=== PATIENT | male | born 1955 | race Caucasian/White ===

== ENCOUNTER → 2018-04-24 14:19 | Outpatient (CLI) | payer OTHER, SELFPAY ==
--- NOTE | 2018-04-24 14:59 | RAD_ITS ---
STUDY: X-RAY - CERVICAL SPINE REASON FOR EXAM: Male, 62 years old. Left cervical radiculopathy TECHNIQUE: 5 view(s) of the cervical spine were obtained. COMPARISON: None FINDINGS: Normal anterior atlantoaxial articulation. Normal odontoid process. Normal cervical lordosis. There is multi-level endplate spondylosis. There is multi-level degenerative disc disease with multilevel disc space narrowing. There is multi-level osseous foraminal stenosis. Skull base hardware. The soft tissue structures are unremarkable. RAD/Cerv Spine 4 or 5 Views IMPRESSION: Degenerative changes without acute findings Electronically Signed: Jonathan Krueger DO at 15:13 EDT Tel , Service support ,
== END ==
PROVIDERS: Family Provider Family Medicine; PCP Family Medicine; Visit Provider Family Medicine
DX: M54.12 Radiculopathy, cervical region (principal)
CPT/HCPCS: 72050

== ENCOUNTER 2018-05-30 08:00 | Outpatient (RCR) | payer OTHER, SELFPAY ==
--- NOTE | 2018-05-07 10:01 | HP.PTEVAL_ITS ---
Patient's Visit Information WILL CLINTON is a 62 year old M referred to Physical Therapy by Vivek Arevalo DO with a diagnosis of neck pain. Date of Evaluation: 05/07/18 Physical Therapist: Michael Aguero PT, - Visit Plan Frequency: 2-3x /Week Duration: 3 Weeks Plan: postural edu, c/s retraction, DTR, scap stab ex's, UBE, US, and HEP - Subjective Subjective: Pt reports intermittent neck pain for several years. Pt reports he had PT for his neck pain 8 years ago which helped. Pt reports he has stiffness and pain which can keep him from sleeping at night. Pt reports he has tingling in his L shoulder which extends from the cervical region. Pt reports he has had xrays which revealed OA in the cervical spine region throughout. Pt reports he will on occasion have tingling all the way down his arm to the 4th and 5th digits of the L UE. Pt reports pulling weeds and working on his computer increases his pain. Pt reports exercising helps to decrease his pain. 3/10 pain at rest, 7/10 pain at worst - Pain neck pain Pain Intensity (Out of 10): 3 Pain Intensity Range: 7 - Objective Neuro: B UE sensation is WNL to light touch. B bicepital reflex= 2/3. ROM: minor limitation with extension, L SB is moderately limited, and minimally limited with retraction. All other motions are WNL. MMT: B UE's 5/5 throughout. Repeated movements: P reports decreased pain with cervical spine retraction activity. special tests: neg compression and distraction tests. - Goals Goal 1:: Decrease c/s pain x 50% to aid with sleep Goal Time Frame: 4-6 Weeks Goal 2:: Decrease frequency and intensity of L UE radiculopathy x 50% to aid with IADL's Goal Time Frame: 4-6 Weeks Goal 3:: Pt will be able to demonstrate proper posture both verbally and physically to aid with preventing future episodes of c/s pain. Goal Time Frame: 4-6 Weeks Goal 4:: I with HEP Goal Time Frame: 4-6 Weeks - Rehabilitation Potential Physical Therapy Diagnosis: Pt has neck pain, limited c/s ROM, and L UE radiculopathy secondary to c/s disc derrangement Rehabilitation Potential: Good - Anticipated Interventions Patient/Client Instruction: Educate patient on: Condition, Plan of Care For the Purpose of:: To improve self management Therapeutic Exercise to Include: Strength training, Endurance training, Body mechanics, Postural training, Flexibilty training, Scapular Strength/ Stabilization For the Purpose of:: To decrease pain, To increase ROM, To improve muscle performance and motor function Ultrasound (thermal/non thermal): Yes For the Purpose of:: To decrease pain Thank you for the opportunity to evaluate your patient. For Medicare and Medicare HMO plans, please review the plan of care and approve it. It will need to be FAXED BACK to us at [phone] for Medicare purposes. Please let me know if there are questions or concerns regarding this plan of care. Physician Signature: Date:
--- NOTE | 2018-05-30 08:42 | HP.PTDCSUM ---
HP - PT D/C Summary It has been my pleasure to treat WILL CLINTON under orders from Vivek Arevalo DO, for the diagnosis of neck pain for a total of 9 visit(s). Discharge Date: Please see the following information for a summary of their discharge status. - Subjective Subjective: Pt reports he feels much better overall - Pain neck pain Pain Intensity (Out of 10): 1 - Overall Improvement % Improvement: 90 - Objective Objective/Function: Neck pain now 1/10 and presents no sleep difficulty. Pt reports minimal L UE radiculopathy that is intermittent in nature. Pt is I with HEP. Rx goals achieved - Goals Goal 1:: Decrease c/s pain x 50% to aid with sleep Goal Progress: Goal Met Goal 2:: Decrease frequency and intensity of L UE radiculopathy x 50% to aid with IADL's Goal Progress: Goal Met Goal 3:: Pt will be able to demonstrate proper posture both verbally and physically to aid with preventing future episodes of c/s pain. Goal Progress: Goal Met Goal 4:: I with HEP Goal Progress: Goal Met - Plan Plan: Discharge - D/C Information If there are questions or concerns regarding this patient's physical therapy, please feel free to call me at [phone]. Thank you for the referral of this patient. Sincerely, Michael Aguero, PT,
== END 2018-05-30 12:57 | disposition home or self-care (01) ==
LOC: PT 08:00
PROVIDERS: Family Provider Family Medicine; PCP Family Medicine; Visit Provider Family Medicine
DX: M54.12 Radiculopathy, cervical region (principal); M47.812 Spondylosis without myelopathy or radiculopathy, cervical region
CPT/HCPCS: 97035; 97110; 97161; 97530

== ENCOUNTER → 2019-08-19 12:34 | Outpatient (CLI) | payer OTHER, SELFPAY ==
[2018-10-09 08:35] VITALS: BMI 24.4
--- NOTE | 2019-08-19 12:38 | RAD_ITS ---
STUDY: X-RAY - ABDOMEN/PELVIS REASON FOR EXAM: Male, 64 years old. Several day history of abdominal discomfort. TECHNIQUE: Single AP view of the abdomen / pelvis. COMPARISON: None. FINDINGS: Normal visualized lung bases. There is an unremarkable bowel gas pattern. There is no demonstrated free abdominal air. The visualized liver, spleen and kidneys are grossly normal in size and morphology. There are calcified phleboliths in the pelvis. Normal visualized osseous structures. RAD/Abdomen Single View IMPRESSION: No acute abnormality is seen. Electronically Signed: Cesar Castro, at 13:26 EDT , Service support ,
== END ==
PROVIDERS: Family Provider Family Medicine; PCP Family Medicine; Referring Provider Family Medicine; Visit Provider Family Medicine
DX: R10.9 Unspecified abdominal pain (principal)
CPT/HCPCS: 74018

== ENCOUNTER → 2020-02-14 15:15 | Outpatient (CLI) | payer OTHER, SELFPAY ==
[2018-10-09 08:35] VITALS: BMI 24.4
[2020-02-14 15:56] LABS: CREATININE FINGERSTICK 0.8 mg/dL (0.70-1.30); EGFR FINGERSTICK > 60.0000 mL/min (>60)
--- NOTE | 2020-02-14 16:00 | MRI_ITS ---
STUDY: MRI BRAIN WITH AND WITHOUT CONTRAST REASON FOR EXAM: Male, 64 years old. New episode of syncope. Arachnoid cyst drained following MRI in 2016. TECHNIQUE: Standardized multiplanar fat and water weighted pulse sequences were obtained. 17ml Dotarem via IV was administered for the contrast portion of the examination. COMPARISON: None. FINDINGS: Normal size of the ventricles and extra-axial spaces for the patient''s age. Normal white matter tracts of the supratentorial brain. Normal bilateral basal ganglia. Normal thalami. There is no extra-axial fluid accumulation. Normal flow voids within the major intracranial circulation suggesting patency by spin echo criteria. Normal venous enhancement. There is no enhancing intra-axial or extra-axial abnormality. There is an arachnoid cyst in the posterior fossa on the right side measures approximately 5.9 x 5 x 4.2 cm. There is increased CSF within the sella and flattening of the pituitary gland consistent with an empty sellar syndrome. Normal infundibular stalk, hypothalamus, and optic chiasm. Normal tectal plate and pineal gland. Normal midbrain, maverick and medulla. Normal cerebellum. Normal basal cisterns. Normal bilateral temporal bones. Normal bilateral internal auditory canals. No demonstrated orbital abnormality, within the constraints of a routine brain study. Normal visualized paranasal sinuses. Postsurgical changes are noted in the occipital bone Normal visualized soft tissue structures. Normal visualized upper cervical spine. MRI/Brain W/WO Contrast IMPRESSION: There is an arachnoid cyst in the posterior fossa on the right side measures approximately 5.9 x 5 x 4.2 cm. Electronically Signed: J Carlos Benton, at 7:19 EDT Tel , Service support ,
== END ==
PROVIDERS: PCP Family Medicine; Referring Provider Family Medicine; Visit Provider Family Medicine
DX: R51 Headache (principal); R55 Syncope and collapse; Z82.49 Family history of ischemic heart disease and other diseases of the circulatory system
CPT/HCPCS: 70553; A9575

== ENCOUNTER 2021-06-29 17:30 | Outpatient (RCR) | payer OTHER, SELFPAY ==
[2020-10-12 17:20] VITALS: BMI 24.4
--- NOTE | 2021-06-17 18:57 | HP.PTEVAL ---
Patient's Visit Information WILL CLINTON is a 65 year old M referred to Physical Therapy by Dr. Vivek Arevalo DO with a diagnosis of Menieres Disease.. Date of Evaluation: 06/17/21 Physical Therapist: Jose Holland, EDDIET, OCS, CSCS - Visit Plan Frequency: 2x /Week Duration: 2-4 Weeks Plan: 2-4 visits for teaching HEP of... 1. VOR standing and moving. 2. foam stance ec with progression of DANIEL. 3. functional squatting with head movements and balance challenges. . Kevin chi type balance work. - Subjective Had Mienieres for 4-5 years now. Vertigo at first and that has leveled out and now typical symptoms of hearing difficulty, ringing in ears etc. However lately the swimming in the ears has increased gradually. The swimminess has been there for a long time but feels worsening over the last 6-8 months slightly more intense. It doesnt keep him form activities but he has been careful with certain activity. Wants to stay active and rides bike adn walks and does yard work several times per week. swimminess is described as feeling unblanaced like stadning on one foot or turning too fast. Sleep is not great but normal at this point. Has sleep apnea and hard time wearing CPAP. No falls lately. No spinning to speak of in last 3-4 months. No treatment for Mieneires except low sodium and low caffein diet. Takes diuretic for blood pressure which may help. Low caffeine diet really helps. 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 Only effected if he has a vertigo attack. Flourescent lights and background noise seems worse. Swimminess would be worse at times with fast movement of the head or bending over too quickly. Also with vestibular-visual priroity problems. - Objective Walks I and normal without deficits today, VOR walking is slightly more challenging but no swimmy feeling. Trasnfers are I and safe. Steps reciprocal without rail. Slight swimmy descending. Foam stance ec very challenging and unsteady and give swimmy feeling moderately trasniently. cervical aROM WFL and without pain. UE AROM WFL and without pain. - B hallpike morales test, - roll test. MSQ positions are negative for swimmyness or symptoms except 180 degree turn L slightly quickly and up from L knee slightly and quickly. Oculamotor is unremarkable on this date: no nystagmus with gaze or head shake. - skew eye deviation. - ocular tilt. Slight positive l head thrust. pursuit and saccades normal and asymptomatic. VOR normal horiz and veritcal with slight swimmyness horizontal qucikly. - Balance/Special Test Scores Functional Gait Assessment Score: 29 % Disability: 3.3400 CATSIB Score (Max score 120 seconds): 94 Dizziness Score: 38 - Goals Goal 1:: Pt I in appropriate HEP to minimize future problems with symptoms and balance. Goal Time Frame: 2-4 Weeks Goal 2:: Stand on foam ec 30 seconds easily Goal Time Frame: 4-6 Weeks Goal 3:: Pt feel 50% better in swimmyness symptoms and balance. Goal Time Frame: 2-4 Weeks - Rehabilitation Potential Physical Therapy Diagnosis: Blance swimmyness from Menieres and appropriate to avoid future problems Rehabilitation Potential: Fair - Anticipated Interventions Patient/Client Instruction: Educate patient on: Condition For the Purpose of:: To increase tolerance to activity/condition/position Therapeutic Exercise to Include: Balance training, Neuromotor development For the Purpose of:: To increase tolerance to activity/condition/position Thank you for the opportunity to evaluate your patient. For Medicare and Medicare HMO plans, please review the plan of care and approve it. It will need to be FAXED BACK to us at [phone] for Medicare purposes. For Medicare only, by signing this I certify the plan of care. Please let me know if there are questions or concerns regarding this plan of care. Physician Signature: Date:
--- NOTE | 2021-08-20 06:54 | HP.PT.NRP ---
WILL Mitchell MUKESHBETHANY was seen in my office for initial evaluation on 06/17/21. The following Plan of Care was established for this patient: Initial Frequency: 2x /Week Initial Duration: 2-4 Weeks Patient/Client Instruction: Educate patient on: Condition For the Purpose of:: To increase tolerance to activity/condition/position Therapeutic Exercise to Include: Balance training, Neuromotor development For the Purpose of:: To increase tolerance to activity/condition/position This patient was last seen in our office 06/29/21. Pertinent comments regarding their Physical therapy will appear below: Pt seen 3 visits for HEp instruct and progression. He was ready to do his exeercises on his own at last session and was to call by end of July if he had concerns or need to return. he did not and I will disocntinue him from my care. At this point I will be discontinuing this patient from physical therapy. I would be happy to see this patient again in the future if found appropriate by the physician. Thank you! Jose Holland, DPT, OCS, CSCS Balance/Gait/Functional tests - Balance/Special Test Scores Functional Gait Assessment Score: 29 % Disability: 3.3400 CATSIB Score (Max score 120 seconds): 94 Dizziness Score: 38
== END 2021-06-29 19:00 | disposition home or self-care (01) ==
LOC: PT 17:30
PROVIDERS: PCP Family Medicine; Referring Provider Family Medicine; Visit Provider Family Medicine
DX: H81.02 Meniere's disease, left ear (principal)
CPT/HCPCS: 97110; 97162

== ENCOUNTER 2022-09-08 18:30 | Outpatient (RCR) | payer OTHER, SELFPAY ==
--- NOTE | 2022-08-02 17:17 | HP.PTEVAL ---
Patient's Visit Information WILL CLINTON is a 67 year old M referred to Physical Therapy by Dr. Vivek Arevalo DO with a diagnosis of R trochanteric bursitis, LBP. Date of Evaluation: 08/02/22 Physical Therapist: Jose Holland, EDDIET, OCS, CSCS - Visit Plan Frequency: 2x /Week Duration: 2-4 Weeks Plan: 2x/week for 2-4 weeks...start two weeks and please... ensure ITB stretch going OK. Teach for HEP: band pull downs, rows, pot stirs and progressions. core brdiges, inchworms, crunches, quadruped opp UE/LE and progressions. DB squats, RDL, lunges and heel raises and progressions. Give pics when ready,. Has db, bands and barbells at home and bowflex and that is where he wants to exercise. - Subjective Pain has been there about a month in R hip and posterior gradually even before a month ago. had x ray one year ago and minor arthritis. Worse a month ago maybe due to increasing walkign with dog and trying some running and may have overdone it. pain then in hip was 7/10 and casuing limping and pain to walk. Pain is lateral hip and posterior especially worse with stepping up.one mile was too much a month ago. No limping in a while up to 1/10 intermittent if puts weight thorugh it. Sleeping is OK now but was waking him up. 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 Not as stiff anymore. Hobbies include walking dog 2-3 miles per day now and slightly worse after walking. has done hip IR/er stretching, HS and LB. Has equipment at home of bands , dumbells and bowflex adn squat rack and barbell. Airdyne bike. - Pain R hip Pain Intensity (Out of 10): 0 Pain Intensity Range: 0, 1 - Objective R ITb tight and quad tight, psoas tight. wALKS NORMAL WITH SLIGHT r AVOIDANCE HIP EXTENSION BUT i. tRASNFERS NORMAL AND i. Steps reciprocal and I without rail but could not have done that a month ago. Hip PROM and AROM symmetrical adn WFL except R hip ext rotation whcih is 65 and L is 75 and IR which is full but painful on R. Tender to palpation R ITB and trochanteric bursa area. reflexes 2/3 patella and achilles. Sensation LE WNL to gross light touch. LB AROM WFL and symmetrical and painfree. +DEDRA R and FADDIR R. strength LE 4- hip ext and abd B, others 4+ in LE. No pain. - Balance/Special Test Scores Oswestry Low Back Score: 9 - Goals Goal 1:: I approp HEP for strength posture, core adn hips and LE with bands, db, baarbells at home. Goal Time Frame: 2-4 Weeks Goal 2:: Pain 100% better in R hip and walk without problems Goal Time Frame: 2-4 Weeks Goal 3:: 2 or less on oswestry Goal Time Frame: 2-4 Weeks - Rehabilitation Potential Physical Therapy Diagnosis: Bursitis R hip resolving and appropriate for PT Rehabilitation Potential: Fair - Anticipated Interventions Patient/Client Instruction: Educate patient on: Condition, Plan of Care For the Purpose of:: To decrease pain, To increase ROM, To improve muscle performance and motor function, To increase tolerance to activity/condition/position Therapeutic Exercise to Include: Strength training, Flexibilty training For the Purpose of:: To decrease pain, To increase ROM, To improve muscle performance and motor function, To improve ability of physical actions for home/community/work/leisure Thank you for the opportunity to evaluate your patient. For Medicare and Medicare HMO plans, please review the plan of care and approve it. It will need to be FAXED BACK to us at [phone] for Medicare purposes. For Medicare only, by signing this I certify the plan of care. Please let me know if there are questions or concerns regarding this plan of care. Physician Signature: Date:
--- NOTE | 2022-09-08 18:58 | HP.PTDCSUM ---
It has been my pleasure to treat WILL CLINTON referred by Dr. Vivek Arevalo DO, with the diagnosis of R trochanteric bursitis, LBP for a total of 7 visit(s). Discharge Date: 09/08/22 Please see the following information for a summary of their discharge status. Subjective: L knee really hurting as he may have overdone it with walking and exercise on the weekend. has been that way this week. R hip is doing pretty well as long as he does not overdo it. Time to time pain. usually with overdoing it walking. Muscle spasms continue in back. Sleep is OK but up achy at times at night with L knee since overdoing it Monday. Avoids squats and lunges this week due to L knee stiffness. Other activites are pretty normal. did HEP for first two weeks wit no problem but did more walking this last weekend. R hip Pain Intensity (Out of 10): 0 Left Leg Pain Intensity (Out of 10): 1 Neck Pain Intensity (Out of 10): 0 % Improvement: 95 Objective/Function: L knee has + bounce home and pain posteriorly with end range flexion. No quad lag. R hip ROM and LB ROM WFL and without pain today. Goal 1:: I approp HEP for strength posture, core adn hips and LE with bands, db, baarbells at home. Goal Progress: Goal Met Goal 2:: Pain 100% better in R hip and walk without problems Goal Progress: 95% Goal 3:: 2 or less on oswestry Goal Progress: Progressing Plan: Pt to rest L knee, work on ROm and hold on squats and lunges until back to 100% L knee then resume. Can continue all other ex, contact doctor if l knee pain lingers. D/C PT If there are questions or concerns regarding this patient's physical therapy, please feel free to call me at [phone]. Thank you for the referral of this patient. Sincerely, Jose Holland, DPT, OCS, CSCS Balance/Gait/Functional tests - Balance/Special Test Scores Oswestry Low Back Score: 8 Lower Extremity Functional Score: 68
== END 2022-09-08 19:00 | disposition home or self-care (01) ==
LOC: PT 18:30
PROVIDERS: PCP Family Medicine; Referring Provider Family Medicine; Visit Provider Family Medicine
DX: M70.61 Trochanteric bursitis, right hip (principal); M54.50 Low back pain, unspecified
CPT/HCPCS: 97110; 97162; 97164; 97530

== ENCOUNTER → 2022-10-27 | Outpatient (CLI) | payer OTHER, SELFPAY ==
--- NOTE | 2022-10-27 | IMM_PTH ---
PATIENT: WILL CLINTON LOC: [facility] U#:[id number] AGE/SX: 67/M ROOM: RE10/27/[address]: Dr. George Oneill MD : 1955 BED: DIS: 10/27/2022 SPEC #: [id number] RECD: 11/01/22 13:17 STATUS: CHRISTINA REQ #: [id number] MATIAS: 10/27/22 00:[address]: George Oneill DEPT: IMMUNOHISTOCHEMISTRY RECD BY: Kirsten Means ENTERED: 11/01/22 13:18 SP TYPE: IMMUNO OTHR DR: Dr. Vivek Arevalo DO Tissues: A - PROSTATE RIGHT D - PROSTATE LEFT F - PROSTATE LEFT Procedures: 34BE12 (add) P40 (add) 34BE12 (initial) PHYSICIAN & INSTITUTION [place] [id number] SPECIMEN INFORMATION: Tissue Source: A - Right apex, D - Left apex, F - Left base Clinical Info: Elevated PSA Specimen Number: [id number] A, D & F CPT code: 31112, 22016 x5 METHODOLOGY: Deparaffinized sections of prefer/formalin-fixed tissue or PAP/DQ stained slides are incubated with monoclonal/polyclonal antibodies/oligonucleotide probes. Localization is made via biotin free immunoperoxidase method. Appropriate controls are performed and reacted as expected. Results on target cell population are indicated in the following table: RESULTS: ANTIBODY / CLONE RESULT Block A P40 (BC28) negative 34BE12 (34BE12) negative Block D P40 (BC28) negative 34BE12 (34BE12) negative Block F P40 (BC28) negative 34BE12 (34BE12) negative These tests were developed and their performance characteristics determined by [facility]. They may not have been cleared or approved by the U.[place]. Food and Drug Administration. The FDA has determined that such clearance or approval is not necessary. The above immunohistochemical/dualISH markers are ordered and reviewed by the Pathologist. INTERPRETATION: A. Right prostate, apex, core biopsy: Atypical small acinar proliferation. D. Left prostate, apex, core biopsy: A minute focus of adenocarcinoma. F. Left prostate, base, core biopsy: Adenocarcinoma. SJ:taya 11/02/2022
--- NOTE | 2022-10-27 | PROSBIL_PTH ---
PATIENT: WILL CLINTON LOC: [facility] U#:[id number] AGE/SX: 67/M ROOM: RE10/27/[address]: Dr. George Oneill MD : 1955 BED: DIS: 10/27/2022 SPEC #: [id number] RECD: 10/28/22 14:03 STATUS: CHRISTINA RERadha #: [id number] MATIAS: 10/27/22 00:[address]: George Oneill DEPT: SURGICAL PATHOLOGY RECD BY: Kev Wakefield ENTERED: 10/28/22 14:03 SP TYPE: PROST BX SUZAN DR: Dr. Vivek Arevalo DO Tissues: A - PROSTATE RIGHT B - PROSTATE RIGHT C - PROSTATE RIGHT D - PROSTATE LEFT E - PROSTATE LEFT F - PROSTATE LEFT Procedures: PROSTATE BX HEADER OPERATION: Prostate biopsy PRE-OP DIAGNOSIS: Elevated PSA TISSUE SUBMITTED: A - Right apex, B - Right mid, C - Right base, D - Left apex, E - Left mid, F - Left base MICROSCOPIC DIAGNOSIS A. Right prostate, apex, core biopsy: Focal atypical small acinar proliferation (JUANA). Focal high-grade prostatic intraepithelial neoplasia (HGPIN). See comment. B. Right prostate, mid, core biopsy: Prostatic adenocarcinoma. Asha grade: 3+3=6 Number of cores involved: 2/2 Proportion of tissue involved: ~25-30% Perineural invasion: Present, focal. Greatest tumor length: 0.4 cm Focal high-grade prostatic intraepithelial neoplasia (HGPIN). C. Right prostate, base, core biopsy: Prostatic adenocarcinoma. Asha grade: 3+4=7 Number of cores involved: 2/2 Proportion of tissue involved: ~75% Perineural invasion: Present, focal. Greatest tumor length: 0.7 cm Focal high-grade prostatic intraepithelial neoplasia (HGPIN). Focal acute inflammation. D. Left prostate, apex, core biopsy: A minute focus of prostatic adenocarcinoma. Asha grade: 3+3=6 Number of cores involved: 1/2 Proportion of tissue involved: <5% Perineural invasion: Present, focal. Greatest tumor length: 0.1 cm Focal high-grade prostatic intraepithelial neoplasia (HGPIN). See comment. E. Left prostate, mid, core biopsy: Focal high-grade prostatic intraepithelial neoplasia (HGPIN). F. Left prostate, base, core biopsy: Prostatic adenocarcinoma. [place] grade: 3+3=6 Number of cores involved: 2/2 Proportion of tissue involved: <5% Perineural invasion: Not identified. Greatest tumor length: <0.4 cm, discontinuous Focal high-grade prostatic intraepithelial neoplasia (HGPIN). See comment. SJ:taya 11/01/2022 COMMENT A, D & F - Immunohistochemistry ([id number]) supports the above diagnosis. MICROSCOPIC DESCRIPTION Slides are reviewed. GROSS DESCRIPTION A - Received is one container designated prostate, right apex. The specimen consists of one elongated fragment of light hassan-white soft tissue measuring 1 cm in length and 0.1 cm in diameter. The specimen is totally submitted in one cassette. B - Received is one container designated prostate, right mid. The specimen consists of two elongated fragments of light hassan-white soft tissue each measuring 1.5 cm in length and 0.1 cm in diameter. The specimen is totally submitted in one cassette. C - Received is one container designated prostate, right base. The specimen consists of two elongated fragments of light hassan-white soft tissue measuring 1.2 and 1.5 cm in length and 0.1 cm in diameter. The specimen is totally submitted in one cassette. D - Received is one container designated prostate, left apex. The specimen consists of one elongated fragment of light hassan-white soft tissue measuring 1.5 cm in length and 0.1 cm in diameter. The specimen is totally submitted in one cassette. E - Received is one container designated prostate, left mid. The specimen consists of two elongated fragments of light hassan-white soft tissue measuring 1 and 1.2 cm in length and 0.1 cm in diameter. The specimen is totally submitted in one cassette. F - Received is one container designated prostate, left base. The specimen consists of two elongated fragments of light hassan-white soft tissue measuring 1 and 1.2 cm in length and 0.1 cm in diameter. The specimen is totally submitted in one cassette. / SJ:rg 10/28/2022 TC:0 [facility]: [id number] x6 ADDENDUM ADDENDUM ADDENDUM ADDENDUM ADDENDUM ADDENDUM ADDENDUM ADDENDUM ADDENDUM ADDENDUM ADDENDUM ADDENDUM ADDENDUM ADDENDUM ADDENDUM ADDENDUM ADDENDUM ADDENDUM ADDENDUM ADDENDUM ADDENDUM ADDENDUM ADDENDUM ADDENDUM ADDENDUM ADDENDUM ADDENDUM ADDENDUM 12/26/2022 09:59 ADDENDUM 12/26/2022 09:59 ADDENDUM 12/26/2022 09:59 ADDENDUM 12/26/2022 09:59 ADDENDUM 12/26/2022 09:59 This addendum is added to incorporate an outside pathology consultation report. The case was examined at [facility] (#[id number]) and the following diagnosis was rendered. A. Right prostate, apex, core biopsy: Rare atypical glands. High-grade prostatic intraepithelial neoplasia. B. Right prostate, mid, core biopsy: Prostatic adenocarcinoma, Asha score 3+4=7, involving 2 of 2 cores and 30% of the tissue. [place] pattern 4 is 5% of the tumor. Perineural invasion. C. Right prostate, base, core biopsy: Prostatic adenocarcinoma, Asha score 3+5=8, involving 2 of 2 cores and 70% of the tissue. Perineural invasion. D. Left prostate, apex, core biopsy: Prostatic adenocarcinoma, Asha score 3+3=6, involving 1 of 1 core and 3% of the tissue. E. Left prostate, mid, core biopsy: Focal high-grade prostatic intraepithelial neoplasia. F. Left prostate, base, core biopsy: Prostatic adenocarcinoma, Asha score 3+3=6, involving 2 of 2 cores and 5% of the tissue. Please see complete above mentioned consultation report in EMR
== END | disposition home or self-care (01) ==
LOC: LABSPEC 15:07
PROVIDERS: PCP Family Medicine; Referring Provider Urology; Visit Provider Urology
DX: C61 Malignant neoplasm of prostate (principal); N42.32 Atypical small acinar proliferation of prostate
CPT/HCPCS: 88305; 88341; 88342; G0416

== ENCOUNTER → 2022-11-25 | Outpatient (CLI) | payer OTHER, SELFPAY ==
--- NOTE | 2022-11-25 09:25 | NM_ITS ---
CLINICAL: 67-year-old male with history of primary prostate carcinoma. WHOLE BODY 99m Tc MDP RADIONUCLIDE BONE SCINTIGRAPHY COMPARISON: None available FINDINGS: Following the intravenous administration of 25.7 mCi of 99m Tc MDP, whole body bone images reveal: 1. Increased radiopharmaceutical concentration is defined in the acromioclavicular and sternoclavicular compartments of both shoulders, the patellofemoral compartment of the right and medial and lateral femoral and medial tibial compartment of the left knee, the fifth lumbar vertebra posteriorly on the left, bilateral elbows, the right wrist. 2. The remaining skeletal structures are scintigraphically unremarkable with normal-appearing renal images and urinary bladder activity identified. NM/Bone Scan Whole Body IMPRESSION: 1. The increase in radiopharmaceutical defined in the bilateral shoulders, the right-left knees, the fifth lumbar vertebra, the elbows bilaterally, the right wrist is commensurate with degenerative arthrosis. 2. There is no definitive scintigraphic evidence of diffuse skeletal metastatic disease on the current examination. Electronically Signed: Adams Garcia, at 10:03 EST ,
== END | disposition home or self-care (01) ==
LOC: NM 09:23
PROVIDERS: PCP Family Medicine; Visit Provider Urology
DX: C61 Malignant neoplasm of prostate (principal)
CPT/HCPCS: 78306; A9503

== ENCOUNTER → 2022-12-15 | Outpatient (CLI) | payer OTHER, MEDICARE, SELFPAY ==
--- NOTE | 2022-12-15 15:28 | MRI_ITS ---
STUDY: MR PELVIS WITH T WITHOUT CONTRAST REASON FOR EXAM: Male, 67 years old. Elevated PSA. TECHNIQUE: Standardized fat and water weighted pulse sequences were obtained in all 3 orthogonal planes, pre-and post contrast administration. IV 15cc clariscan was administered for the contrast portion of the examination. COMPARISON: None. FINDINGS: The prostate measures 3.1 x 4.5 x 2.8 cm with a volume of 19.7 mL. There is normal signal in the peripheral zone on diffusion weighted imaging with a vague area of low signal in the right lateral prostate and ADC mapping. This correlates with a vague area of hypodensity in the white matter on T2-weighted imaging is seen on image 14 of series 5. This measures approximately 0.6 cm in diameter this is compatible with a PI-RADS category 4 lesion.. No contrast enhancement. The transitional zone is diffusely heterogenous on T2-weighted imaging. This appears uniformly low signal on ADC mapping and high signal on diffusion-weighted imaging compatible with a PI-RADS category 1. Mild wall thickening and trabeculation of the urinary bladder. There is no filling defects. Normal visualized small intestine. Normal visualized colon. There is no pelvic fluid. There is no pelvic mass lesion or lymphadenopathy. Normal visualized pelvic arteries. Normal osseous structures. Normal abdominal wall. MRI/Pelvis W/WO Contrast IMPRESSION: 1. Focal lesion in the right upper outer peripheral zone of the prostate, PI-RADS Category 4. High clinical suspicion of malignancy. 2. PI-RADS category 1 of the transitional zone. Very low incidence of malignancy. Electronically Signed: Néstor Cazares DO at 19:01 EST ,
[2022-12-15 16:11] LABS: CREATININE FINGERSTICK < 0.9 mg/dL (0.70-1.30); EGFR FINGERSTICK > 60.0000 mL/min (>60)
== END | disposition home or self-care (01) ==
PROVIDERS: PCP Family Medicine; Referring Provider Urology; Visit Provider Urology
DX: C61 Malignant neoplasm of prostate (principal)
CPT/HCPCS: 72197; A9575

== ENCOUNTER → 2023-02-02 | Outpatient (CLI) | payer OTHER, SELFPAY | END | disposition home or self-care (01) | PROVIDERS: PCP Family Medicine | DX: R30.0 Dysuria (principal) | CPT/HCPCS: 87086; 87088 ==

== ENCOUNTER 2023-09-12 18:30 | Outpatient (RCR) | payer OTHER, SELFPAY ==
--- NOTE | 2023-08-14 08:53 | HP.PTEVAL ---
Patient's Visit Information Visit Information Visit Information: WILL CLINTON is a 68 year old M referred to Physical Therapy by Dr. Vivek Arevalo DO with a diagnosis of cervicalgia. Date of Evaluation: 08/14/23 Physical Therapist: Jose Holland, DPT, OCS, CSCS Visit Plan Frequency: 2-3x /Week Duration: 4-6 Weeks Plan: 2-3x/week for 4-6 weeks for 1. MH and STM, DTR to R neck and lev scap 2. PA mobs and manual traction to neck and PROM rotation and extension, flexion. 3. postural and neck strength to HEP with bands , db, bowflex with pics. Subjective Subjective: Dr. Arevalo sent for neck pain and into spine and r wrist and hand pain and weakness. Clicking of mouse gets hard on r side with pain and achy feeling in R wrist. Is R handed. This has been worsening over the years. Now it is hindering his ability to sit and work. H/o CTS R yrs ago that did not help. 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 Worse at end of day. Denies numbness or tingling in arm of any significance. Sleep is interrupted at times as uncomfortable if he wakes up and hard to find right position to get back to sleep. Basic ADLS are getting done but hurt yesterday to make chili. Hobbies: physical activity and walking dogs. running jogging with dogs is worse. Resistance training is restricted with R wrist. Exercises: OH press, deadlift, bench, Has bowflex and bands and db at home. Pain neck and R wrist.: Pain Intensity (Out of 10): 2 Pain Intensity Range: 1 and 9 Comment: stabbing if lifts heavy or moving quickly. Objective Objective: c/s AROM 55 B rotation pain on R with L rot. extension 40 with tightness R Full UE AROM full scap AROM without pain, elbows and wrist move well. reflexes 1/3 bi and tri B Sensation UE WNL to gross light touch. strength shoulders, elbows and wrists 4+/4 without pain except slight wrist extension. cervical retraction is mod limtied, flexion mod limited to 20 with pulling posterior lev scap wchich is tight on R. and tender to touch. SB are 10 and painfree B. repeated motion flexion increases AROM ext and flexion - c/s compression test. Balance/Special Test Scores Oswestry Neck Score: 16 Goals Goal 1:: Cervical ext 60 and rotation 60 without pain or problems Goal Time Frame: 4-6 Weeks Goal 2:: Pain in neck 1-2/10 at worst and 80% better Goal Time Frame: 4-6 Weeks Goal 3:: Sleep without interruption at night x one week Goal Time Frame: 4-6 Weeks Goal 4:: oswestry score5 or better Goal Time Frame: 4-6 Weeks Goal 5:: I HEP to limit future problems. Goal Time Frame: 4-6 Weeks Rehabilitation Potential Physical Therapy Diagnosis: neck degeneration and postural problems causing pain limiting function Rehabilitation Potential: Good Anticipated Interventions Patient/Client Instruction: Educate patient on: Condition and Plan of Care For the Purpose of:: To decrease pain, To increase ROM, To improve nutrient delivery to tissue, To improve muscle performance and motor function and To increase tolerance to activity/condition/position Therapeutic Exercise to Include: Strength training, Postural training, Flexibilty training, Passive ROM and Active ROM For the Purpose of:: To decrease pain, To increase ROM, To improve nutrient delivery to tissue, To improve muscle performance and motor function and To increase tolerance to activity/condition/position Manual Therapy Techniques to Include: Mobilization, Passive ROM and Soft tissue mobilization For the Purpose of:: To decrease pain, To decrease swelling/inflammation, To improve nutrient delivery to tissue, To improve muscle performance and motor function and To increase tolerance to activity/condition/position Thermo therapy (hot pack): Yes For the Purpose of:: To decrease pain, To increase ROM, To improve nutrient delivery to tissue, To improve muscle performance and motor function and To improve ability of physical actions for home/community/work/leisure Text: Thank you for the opportunity to evaluate your patient. For Medicare and Medicare HMO plans, please review the plan of care and approve it. It will need to be FAXED BACK to us at [phone] for Medicare purposes. For Medicare only, by signing this I certify the plan of care. Please let me know if there are questions or concerns regarding this plan of care. Physician Signature: Date:
--- NOTE | 2023-09-12 18:52 | HP.PTDCSUM ---
Discharge Summary D/C summary: It has been my pleasure to treat WILL CLINTON referred by Dr. Vivek Arevalo DO, with the diagnosis of cervicalgia for a total of 7 visit(s). Discharge Date: 09/12/23 Please see the following information for a summary of their discharge status. Subjective Subjective: [id number] stretches has worked well. Much more painfree. and more flexible. No more pain in thoracic are with movement. Still gets some fatigue and katie in mid bakc with sitting too long. Pain intensity can get up to 5/10, no pain at rest, only with certain movments. Sleep is OK. Pain neck and R wrist.: Pain Intensity (Out of 10): 4 Overall Improvement % Improvement: 75 Objective Objective/Function: Good arom of neck today still tight particularly R lev scap but much better flexiona nd extension ROM and full rotation and SB without pain today. UE AROM WFL. Goals Goal 1:: Cervical ext 60 and rotation 60 without pain or problems Goal Progress: Goal Met Goal 2:: Pain in neck 1-2/10 at worst and 80% better Goal Progress: 75% Goal 3:: Sleep without interruption at night x one week Goal Progress: met with pain Goal 4:: oswestry score5 or better Goal Progress: Progressing Goal 5:: I HEP to limit future problems. Goal Progress: Goal Met Plan Plan: d/c to HEP D/C Information d/c sentence: If there are questions or concerns regarding this patient's physical therapy, please feel free to call me at [phone]. Thank you for the referral of this patient. Sincerely, Jose Holland, DPT, OCS, CSCS Balance/Gait/Functional tests Balance/Special Test Scores Oswestry Neck Score: 7 Improvement % Improvement: 75
== END 2023-09-12 19:00 | disposition home or self-care (01) ==
LOC: PT 18:30
PROVIDERS: PCP Family Medicine; Referring Provider Family Medicine; Visit Provider Family Medicine
DX: M77.8 Other enthesopathies, not elsewhere classified (principal); M54.2 Cervicalgia
CPT/HCPCS: 97110; 97140; 97161; 97530

== ENCOUNTER → 2023-11-02 | Outpatient (CLI) | payer OTHER, SELFPAY ==
--- NOTE | 2023-11-02 06:50 | CT_ITS ---
STUDY: CT ABDOMEN AND PELVIS WITH CONTRAST REASON FOR EXAM: Male, 68 years old. MALIGNANT NEOPLASM OF PROSTATE RADIATION DOSAGE (If Supplied By Facility): CTDIvol = ( 12.89 ) mGy, DLP = ( 617.54 ) mGycm TECHNIQUE: Transaxial images were obtained from the dome of the diaphragm to the symphysis pubis without oral contrast. Oral and amp; IV Readi-CAT and amp; 100mL Isovue-300 was administered. Sagittal and coronal images were reconstructed. Individualized dose optimization techniques were used for this CT. COMPARISON: None. FINDINGS: The visualized lung bases are unremarkable. The visualized portions of the heart are within normal limits. Normal liver. Normal gallbladder and extrahepatic biliary system. Normal spleen. Normal pancreas. Normal bilateral adrenal glands. There is a small cyst right kidney measuring 5.9 mm. Is an exophytic cyst left kidney measuring 1.1 cm. There is an exophytic cyst left kidney measuring 1.1 cm and one measuring 9.3 mm. There is a small hiatal hernia. There is a visualized thick walled appearance of the third and fourth appearance of the duodenum. The proximal jejunum demonstrate abnormal wall thickening and distention in a focal lobe image #41 series 2. There is a decompressed appearance of the left of midline small bowel. There is a decompressed contrasted filled appearance of the distal small bowel with contrast entering the colon. There is a decompressed appearance of the sigmoid with a featureless appearance. The appendix is visualized and appears normal. The aorta is partially calcified. Normal inferior vena cava. There is a minimally distended appearance of the distal midline ureter which appears to resolve. There is a decompressed thick-walled appearance of the bladder. The bladder is low lying the prostate is nonvisualized. Normal abdominal wall. There are diffuse degenerative changes of the visualized lumbar spine. At the level of L5-S1 there is disc space narrowing. Mild neural foraminal narrowing or significant central stenosis. There is a mild broad disc bulge L4-L5 with mild neural foramina narrowing mild central stenosis. CT/Abdomen/Pelvis WITH Contrast IMPRESSION: Abnormal focal distention of the small bowel in the left to midline abdomen which may represent a focus of transient peristalsis however follow-up is warranted to exclude the possibility of abnormal wall thickening or potentially atypia. The differential includes possible mild focus of enteritis. Recommend consideration for upper GI small bowel follow-through. At the time of this study there is no contrast within this loop of bowel. Otherwise nonobstructive bowel gas pattern. Featureless decompressed appearance of the sigmoid colon recommend correlation with clinical history of inflammatory bowel disease or potentially radiation. Status post prostatectomy. Wall thickening of the bladder suspicious for cystitis. Benign-appearing small cyst right kidney measuring 5 mm. Small cyst left kidney measuring 9.3 mm and 1.1 cm. Electronically Signed: Ana Rosa Gan MD at 0:00 EST ,
--- OUTSIDE RECORDS SUMMARY | 2023-11-02 06:51 | XMS RPT_ITS | CCD ---
Author Name Unknown Address [address] [place] [address] Organization [facility] Care Team Providers Care Instructor Technical Training Name Role Phone CEZAR KOVACS MD. Unavailable Unavailable CEZAR KOVACS MD. Unavailable Unavailable Nan Arevalo Unavailable Unavailable Nan Arevalo Unavailable Unavailable CEZAR KOVACS MD. Unavailable Unavailable Nan Arevalo Unavailable Unavailable Shonda Gallegos Unavailable Unavailabl e *SELF, REFERRED Unavailable Unavailable Nan Arevalo Unavailable Unavailable CEZAR KOVACS MD. Unavailable Unavailable CEZAR KOVACS MD. Unavailable Unavailable Nan Arevalo Unavailable Unavailable Cezar Kovacs Unavailable Unavailable Irinaeliane HARO, Nan A Primary Care Provider GEORGE PADILLA Referring Unavailable WILL ZHANG Attending Unavailable IRINA, NAN A Primary Care Unavailable JR GAMEZ Attending Unavailable IRINA, NAN A Primary Care Unavailable WILL ZHANG Referring Unavailable JR GAMEZ Attending Unavailable IRINA, NAN A Primary Care Unavailable WILL ZHANG Referring Unavailable IRINA, NAN A Primary Care Unavailable GONAngle, WILL Haji Attending Unavailable IRINA, NAN A Referring Unavailable IRINA, NAN A Primary Care Unavailable GONWILL Barbour Attending Unavailable WILL ZHANG Referring Unavailable GONGWILL Attending Unavailable IRINA, NAN A Referring Unavailable IRINA, NAN A Primary Care Unavailable IRINA, NAN A Primary Care Unavailable GONG, WILL Haji Attending Unavailable IRINA, NAN A Referring Unavailable IRINA, NAN A Primary Care Unavailable GONG, WILL Haji Attending Unavailable IRINA, NAN A Referring Unavailable IRINA, NAN A Primary Care Unavailable GEORGE PADILLA Referring Unavailable WILL ZHANG Attending Unavailable WILL ZHANG Admitting Unavailable IRINA, NAN A Primary Care Unavailable WILL ZHANG Attending Unavailable NAN AREVALO Referring Unavailable NAN AREVALO Primary Care Unavailable Amanda Sellers DO Unavailable Linda Gonzalez Unavailable Ena Cruz LPN Unavailable Unavailable Allergies Allergy Classification Reported Allergen(s) Allergy Type Date of Onset Reaction(s) Facility (4 sources) atomoxetine Drug Allergy 07-11-2012 Dysuria [facility] (5 sources) Codeine Drug Allergy 09-11-2006 Hives [facility] Medications Current Medications Medication Drug Class(es) Dates Sig (Normalized) Sig (Original) acetaminophen 325 mg oral tablet (2 sources) Start: 01-10-2023 take 3 tablets by mouth every eight hours Acetaminophen 325 MG tablet Take 3 tablets by mouth every 8 hours for 7 days. 63 tablet 0 01/10/2023 Active Cholecalciferol (2 sources) Vitamin D take 5000 mg by mouth at bedtime Cholecalciferol (D3 5000 PO) Take 5,000 mg by mouth at bedtime. 0 Active Completed/Discontinued Medications Medication Drug Class(es) Dates Sig (Normalized) Sig (Original) amLODIPine 5 mg oral tablet (1 source) Dihydropyridine Calcium Channel Abdoul Start: 05-24-2023 take 1 tablet by mouth once daily amLODIPine 5 mg oral tablet 1 (one) tablet daily for 90 days Quantity: 90 {Tablet} Refills: 3 Ordered: 24-May-2023 Amanda Sellers DO, DO, Kathleen Start : 24-May-2023 Active sildenafil 100 mg oral tablet (2 sources) Phosphodiesterase 5 Inhibitor Start: 05-24-2023 take 1 tablet by mouth once daily sildenafiL 100 mg oral tablet 1 Tablet daily for 90 days Quantity: 90 {Tablet} Refills: 3 Ordered: 24-May-2023 Amanda Sellers DO, DO, Kathleen Start : 24-May-2023 Active Problems Active Problems Problem Classification Problem Date Documented Da te Episodic/Chronic Abdominal hernia (2 sources) Hiatal hernia; Translations: [Hiatal hernia] 05-24-2023 Episodic Past or Other Problems Problem Classification Problem Date Documented Date Episodic/Chronic Mood disorders (4 sources) Mood disorders Onset: 12-01-2022 12-01-2022 Other nervous system disorders (2 sources) Other acute postprocedural pain; Translations: [Other acute postprocedural pain] Onset: 01-10-2023 Episodic Residual codes; unclassified (2 sources) Other specified health status; Translations: [Other specified health status] Onset: 12-30-2022 Episodic Unclassified (1 source) Results Test Name Value Interpretation Reference Range Facil ity Vital Signs Date Time Vital Sign Value Performing Clinician Facility 05-24-2023 15:43-0400 Body height 179.07 cm Ena Cruz LPN [facility] Work Phone: 05-24-2023 15:43-0400 Body mass index (BMI) [Ratio] 23.76 kg/m2 Ena Cruz LPN [facility] Work Phone: 05-24-2023 15:43-0400 Body surface area Derived from formula 1.95 m2 Ena Cruz LPN [facility] Work Phone: 05-24-2023 15:43-0400 Body temperature 97.1 [degF] Ena Cruz LPN [facility] Work Phone: Encounters Encounter Date Encounter Type Care Provider Facility Start: 05-24-2023 End: 05-24-2023 Initial preventive medicine new patient 65yrs&> Amanda Sellers DO Work Phone: [facility] Start: 05-04-2023 ambulatory WILL ZHANG Facility :[facility] Start: 01-26-2023 ambulatory WILL ZHANG Facility :[facility] Start: 01-18-2023 ambulatory WILL ZHANG Facility :[facility] Start: 01-18-2023 ambulatory WILL ZHANG Facility :[facility] Start: 01-18-2023 End: 01-18-2023 Clinical Support Encounter Will Zhang MD, PhD Work Phone: Division [facility] Procedures Date Procedure Procedure Detail Performing Clinician Start: 01-10-2023 Antibody screen GEORGE DEVRIES Plan of Treatment Date Care Activity Detail Author Start: 07-23-2024 Tetanus vaccination TETANUS [facility] Start: 07-21-2023 Pneumococcal vaccination PNEUMOCOCCAL VACCINE SERIES (2 - PCV) [facility] Start: 05-24-2023 Assay of thyroid stimulating hormone tsh TSH ([id number]) [facility] Work Phone: Start: 05-24-2023 Urnls dip stick/tablet reagent auto microscopy URINALYSIS, W/ MICRO ([id number]) [facility] Work Phone: Start: 05-24-2023 Urine albumin quantitative MICROALBUMIN: CREATININE RATIO (03665) AND ([id number]) [facility]; [facility] Work Phone: Start: 05-24-2023 Comprehensive metabolic panel METABOLIC PANEL, COMPREHENSIVE (07065) [facility] Work Phone: Start: 05-24-2023 Lipid panel LIPID PANEL ([id number]) [facility] Work Phone: Start: 05-24-2023 Blood count complete auto&auto difrntl wbc CBC W/AUTO DIFF WBC ([id number]) [facility] Work Phone: Start: 05-24-2023 Procedure Education Eprescribed prescriptions ([id number]) [facility] Work Phone: Start: 05-24-2023 Provider Instructions for Treatment [facility] Work Phone: Start: 01-26-2023 End: 01-26-2023 Patient encounter procedure 01/26/2023 Office Visit Urology Will Zhang MD, PhD [address] [place] [address] Division of Urological Surgery at [facility] Start: 01-18-2023 End: 01-18-2023 Clinical Support Encounter Division of Nursing at [facility] Start: 01-10-2023 End: 01-10-2023 Evaluation and management of inpatient CCCT PERIOP Payers Date Payer Category Payer Private Health Insurance [id number] Private Health Insurance [employer] [id number] 2011-Present [address] [place] [address] [id number] 1955 Unknown [id number] [id number]. 2.356 1955 Unknown [id number] 2.16.840.1.159897.3.579. 2.356 1955 Unknown [id number] 2.16.840.1.227195.3.579. 2.356 1955 Unknown [id number] 2.16.840.1.650813.3.579. 2.356 1955 Unknown [id number] 2.16.840.1.207791.3.579. 2.594 1955 Unknown [id number] 2.16.840.1.135051.3.579. 2.594 1955 Unknown [id number] 2.16.840.1.714407.3.579. 2.594 1955 Unknown [id number] 2.16.840.1.622591.3.579. 2.594 1955 Unknown [id number] 2.16.840.1.817993.3.579. 2.594 1955 Unknown [id number] 2.16.840.1.726790.3.579. 2.594 1955 Unknown [id number] 2.16.840.1.318635.3.579. 2.594 1955 Unknown [id number] 2.16.840.1.924030.3.579. 2.594 1955 Unknown [id number] 2.16.840.1.556586.3.579. 2.594 1955 Unknown [id number] 2.16.840.1.728817.3.579. 2.594 1955 Unknown [id number] 2.16.840.1.757508.3.579. 2.594 Unknown [id number] 2.16.840.1.118164.3.579. 2.286 Unknown [employer] Insurance Social History Date Type Detail Facility Start: 12-01-2022 Tobacco smoking status NHIS Never smoked tobacco [facility] Start: 12-01-2022 Tobacco use and exposure Smokeless tobacco non-user [facility] Start: 12-01-2022 End: 01-11-2023 Alcohol intake Lifetime non-drinker (finding) [facility] Start: 1955 Sex Assigned At Not on file [facility] Start: 11-21-2022 End: 01-10-2023 Exposure to SARS-CoV-2 (event) Not sure [facility] Alcohol Use Alcohol Use [facility] Work Phone: Goals Date Patient Goal Desired Activity /State Clinical Notes 08-10-2021 to 01-18-2023 Jordan Thapa RN - 01/18/2023 11:00 AM Angela Swenson RN - 01/18/2023 10:00 AM Bridger Gamez MD - 12/26/2022 12:45 PM Mary Lou Gamez MD - 12/26/2022 12:45 PM ESTPatient Instructions Note Date & Type Note Facility 01-18-2023 History of Presen t illness Narrative Will Kenney was seen by Nursing and [facility] on January 18 for Erectile Dysfunction. This is his 1st [facility] Clinic Visit. Patient had RARP per Dr. Zhang on January 10, 2023. ICD-10-CM 1. Erectile dysfunction following radical prostatectomy N52.31 sildenafil citrate (Viagra) 100 MG tablet 2. Malignant neoplasm of prostate C61 Wt Readings from Last 1 Encounters: 01/10/23 74.8 kg (165 lb) Temp Readings from Last 1 Encounters: 01/11/23 98.5 F (36.9 C) (Oral) BP Readings from Last 1 Encounters: 01/18/23 143/83 Pulse Readings from Last 1 Encounters: 01/18/23 80 Pain Symptoms: no Location: Scale (0-10): Pain level acceptable: yes Character: Frequency: Duration: Pre Operative patient reported history: Erectile History: Can maintain and penetrate. Percent of erection: 85 percent hardness. Nocturnal erections: Nocturnal erections sometimes EULALIO Score: Prior comorbid conditions: dVP (Robotic Prostatectomy) Sexually active: yes Erectile dysfunction treatments: None needed Post RARP history: Procedure: Nerve Sparing: Unilateral 1. Patient Education: Patient taught results of left nerve sparing surgery. Erectile rehabilitation taught as below per provider request? Medications: Sildenafil 100 mg 1 tab po daily and on demand Reviewed side effects, administration of medication and provided CareNotes handout to patient on medication. Reviewed Vacuum Erection Device (KALYANI) instructions and provided patient education handout ED Treatment with Manual Vacuum Erection Device Injection therapy: no, reviewed with patient. Time spent face to face with patient education was 45 minutes The patient verbalizes understanding of these issues and agrees with the plan of all above. Plan: 1. Patient will take Sildenafil as instructed per Dr. Zhang and will follow up with office if side affects occur. 2. Patient will let us know if interested in ICI. Patient to return for follow up [facility] clinic on : as needed for ICI documented in this encounter [facility] 01-18-2023 History of Presen t illness Narrative Denies fevers or pain. Having regular bowel movements. Patient educated on process of voiding trial. 200 ml sterile water instilled into bladder via sandoval. Removed 10 ml catheter balloon and sandoval catheter was removed per protocol. Patient voided 160 ml yellow(color) urine. 45ml residual per bladder scan. Patient tolerated well. Educated patient on Kegel Exercises and expected urinary leakage. Provided patient with incontinence pad. All questions answered. documented in this encounter [facility] 12-26-2022 History and physical note History of Present Illness Mr. Kenney is a 67 y.o. male is being evaluated in [facility] due to his medical condition(s) , which increases his risk for perioperative complications. Patient has hx of HYPERTENSION, VIOLET and prostate cancer. Name: Will Kenney Date of Surgery: 01/10 Surgeon: Leatha Pre-Op Diagnosis: Prostate cancer. Planned Procedure: ROBOTIC PROSTATECOMY WITH LYMPH NODE DISSECTION Do you take Aspirin? no If so, why? Do you take anti-coagulations? If so, why? Type of anesthesia planned: General ANESTHESIA/AIRWAY Anesthesia alerts - known VIOLET -on CPAP, Personal history of problems related to anesthesia (ex.Malignant Hyperthermia): no Family History of problems related to anesthesia (ex.Malignant Hyperthermia: no Pacer/AICD: no Glaucoma: no Beta Abdoul: no Diabetic Mellitus: no VIOLET: yes Neck circumference greater than 40 cm? - Yes Neck Circumference (cm): 38 BMI more then 35? - No Body mass index is 23.76 kg/m . Mallampati class - 1 TM Distance - 3 FB Oral Opening - 3 FB Teeth - normal dentition for age Cervical range of motion - within normal limits Neck circumference - Neck Circumference (cm): 38 Allergies and adverse drug reactions Allergies Allergen Reactions Atomoxetine Dysuria Other reaction(s): Intolerance dysuria Codeine Hives Crab (Diagnostic) Diarrhea Crab meat Lisinopril Cough Anesthesia/Airway A/P - Pt denies hx of complication with previous anesthesia and/or airway. CARDIOVASCULAR Cardiovascular A/P - This patient is in a low risk category as calculated using the RCRI/NSQIP with 1 risk factors. RCRI score is 1 points placing him/her at a 6% cardiac risk in the perioperative setting Functional status - : moderate functional status. Pt is able to perform ADL's independently and climb 2-63 flights of stairs and exercise 4-5 times a weeks. 1. HYPERTENSION - pt states he is borderline and has been taken off meds after pt made some changes to his routine. BP Readings from Last 3 Encounters: 12/26/22 142/82 12/01/22 160/90 2. ? Hx of mitral valve prolapse. Pt states he was told 20+ yrs ago but does not remember if he had any cardiac imaging done. PLAN: No further cardiac testing needed. CARDIAC TESTING: EKG (12/26/2022): NSR, HR:65, normal CT interval, no acute abnormality. PULMONARY Social History Tobacco Use Smoking Status Never Smokeless Tobacco Never Does the patient Vape? no Pulmonary A/P - Pt denies any active pulmonary complaints/concerns at this time. SUBSTANCE ABUSE Social History Substance and Sexual Activity Alcohol Use Never Social History Substance and Sexual Activity Drug Use Never Substance Abuse A/P - Pt denies any hx of substance abuse. CLOTTING/BLEEDING History of DVT/PE - no Are you a Jehovah Witness? - no In case of surgeons plan or unforseen emergency, are you okay with receiving blood products? - yes Clotting Bleeding A/P - Pt denies any hx of clotting/bleeding disorder. Recommend standard DVT/PE prophylaxis postoperatively. DIABETES Diabetes A/P - Pt has never been diagnosed with DM. No results found for: HGBA1C ADDITIONAL DIAGNOSES OF CONCERN 1. BPH- stable on tamsulosin. MEDICATIONS Current Outpatient Medications Medication Sig Cholecalciferol (D3 5000 PO) Take 5,000 mg by mouth at bedtime. Tamsulosin HCl 0.4 MG capsule Take 1 capsule by mouth at bedtime. Medication A/P - Instructions for preoperative medications given to the patient in AVS. LABS Orders Placed This Encounter CBC, EDIF, PLATELET CHEM 6 (LYTES, BUN CREA) CBC AND ELECTRONIC DIFF Type and Cross -Preadmission PREPARE TO TRANSFUSE OR RED BLOOD CELLS: [address] ECG, CLINIC PERFORMED Pulse Ox Lab A/P - Labs reviewed and CBC & Chem-6 noted in acceptable range for scheduled surgery. Lab Results Component Value Date WBC 5.41 12/26/2022 HGB 13.5 12/26/2022 HCT 40.3 12/26/2022 PLATELET 212 12/26/2022 MCV 93.3 12/26/2022 Lab Results Component Value Date SODIUM 136 12/26/2022 POTASSIUM 4.0 12/26/2022 CHLORIDE 102 12/26/2022 CO2 29 12/26/2022 BUN 13 12/26/2022 CREATSERUM 0.73 12/26/2022 Does pt meet criteria for liberalized NPO? NO If no, why? ASA 3 ore more. Pt is Medically OPTIMIZED to proceed with scheduled surgery. Jr Gamez MD [facility] [place] [address] [facility] Review of Systems (OSUROS) Review of Systems Constitutional: Negative for appetite change, chills, fatigue and fever. HENT: Negative for congestion, ear pain, hearing loss, nosebleeds, sinus pain, sore throat, tinnitus and trouble swallowing. Eyes: Negative for discharge and itching. Respiratory: Negative for cough, chest tightness and shortness of breath. Cardiovascular: Negative for chest pain, palpitations and leg swelling. Gastrointestinal: Negative for abdominal pain, constipation, diarrhea, nausea and vomiting. Genitourinary: Positive for frequency. Negative for difficulty urinating, dysuria, enuresis, hematuria and urgency. Musculoskeletal: Negative for back pain, myalgias and neck pain. Skin: Negative for color change and rash. Neurological: Negative for dizziness, speech difficulty, numbness and headaches. Psychiatric/Behavioral: Negative for agitation, behavioral problems, decreased concentration and sleep disturbance. The patient is not nervous/anxious. Physical Examination ([facility]) Blood pressure 142/82, pulse 63, temperature 98.8 F (37.1 C), resp. rate 18, height 1.791 m (5' 10.5 ), weight 76.2 kg (168 lb), SpO2 99 %. Physical Exam Vitals reviewed. Constitutional: General: He is not in acute distress. Appearance: Normal appearance. He is normal weight. He is not ill-appearing. HENT: Head: Normocephalic and atraumatic. Right Ear: Tympanic membrane normal. Left Ear: Tympanic membrane normal. Nose: Nose normal. No congestion or rhinorrhea. Mouth/Throat: Mouth: Mucous membranes are moist. Pharynx: Oropharynx is clear. Eyes: General: Right eye: No discharge. Left eye: No discharge. Extraocular Movements: Extraocular movements intact. Cardiovascular: Rate and Rhythm: Normal rate and regular rhythm. Pulses: Normal pulses. Heart sounds: Normal heart sounds. No murmur heard. No friction rub. Pulmonary: Effort: Pulmonary effort is normal. No respiratory distress. Breath sounds: Normal breath sounds. No stridor. No wheezing or rhonchi. Abdominal: General: Abdomen is flat. Bowel sounds are normal. There is no distension. Palpations: Abdomen is soft. There is no mass. Tenderness: There is no abdominal tenderness. Musculoskeletal: General: No swelling or tenderness. Normal range of motion. Cervical back: Normal range of motion and neck supple. No rigidity. Skin: General: Skin is warm and dry. Coloration: Skin is not jaundiced or pale. Neurological: General: No focal deficit present. Mental Status: He is alert and oriented to person, place, and time. Mental status is at baseline. Cranial Nerves: No cranial nerve deficit. Psychiatric: Mood and Affect: Mood normal. Behavior: Behavior normal. Thought Content: Thought content normal. Past Medical History: Diagnosis Date Arachnoid cyst s/p fenestration Degenerative joint disease cervical spine Hypertension Meniere disease, left Obstructive sleep apnea Osteoarthritis Past Surgical History: Procedure Laterality Date CYSTECTOMY 2017 arachnoid cyst fenestration HERNIA REPAIR 2016 hiatal hernia repair Patient Care Team: Nan Arevalo DO as PCP - General (Family Medicine) No family history on file. Social History Socioeconomic History Marital status: Number of children: 1 Tobacco Use Smoking status: Never Smokeless tobacco: Never Vaping Use Vaping Use: Never used Substance and Sexual Activity Alcohol use: Never Drug use: Never [facility] Work Phone: 12-26-2022 History and physical note History of Present Illness Mr. Kenney is a 67 y.o. male is being evaluated in [facility] due to his medical condition(s) , which increases his risk for perioperative complications. Patient has hx of HYPERTENSION, VIOLET and prostate cancer. Name: Will Kenney Date of Surgery: 01/10 Surgeon: Leatha Pre-Op Diagnosis: Prostate cancer. Planned Procedure: ROBOTIC PROSTATECOMY WITH LYMPH NODE DISSECTION Do you take Aspirin? no If so, why? Do you take anti-coagulations? If so, why? Type of anesthesia planned: General ANESTHESIA/AIRWAY Anesthesia alerts - known VIOLET -on CPAP, Personal history of problems related to anesthesia (ex.Malignant Hyperthermia): no Family History of problems related to anesthesia (ex.Malignant Hyperthermia: no Pacer/AICD: no Glaucoma: no Beta Abdoul: no Diabetic Mellitus: no VIOLET: yes Neck circumference greater than 40 cm? - Yes Neck Circumference (cm): 38 BMI more then 35? - No Body mass index is 23.76 kg/m . Mallampati class - 1 TM Distance - 3 FB Oral Opening - 3 FB Teeth - normal dentition for age Cervical range of motion - within normal limits Neck circumference - Neck Circumference (cm): 38 Allergies and adverse drug reactions Allergies Allergen Reactions Atomoxetine Dysuria Other reaction(s): Intolerance dysuria Codeine Hives Crab (Diagnostic) Diarrhea Crab meat Lisinopril Cough Anesthesia/Airway A/P - Pt denies hx of complication with previous anesthesia and/or airway. CARDIOVASCULAR Cardiovascular A/P - This patient is in a low risk category as calculated using the RCRI/NSQIP with 1 risk factors. RCRI score is 1 points placing him/her at a 6% cardiac risk in the perioperative setting Functional status - : moderate functional status. Pt is able to perform ADL's independently and climb 2-63 flights of stairs and exercise 4-5 times a weeks. 1. HYPERTENSION - pt states he is borderline and has been taken off meds after pt made some changes to his routine. BP Readings from Last 3 Encounters: 12/26/22 142/82 12/01/22 160/90 2. ? Hx of mitral valve prolapse. Pt states he was told 20+ yrs ago but does not remember if he had any cardiac imaging done. PLAN: No further cardiac testing needed. CARDIAC TESTING: EKG (12/26/2022): NSR, HR:65, normal CT interval, no acute abnormality. PULMONARY Social History Tobacco Use Smoking Status Never Smokeless Tobacco Never Does the patient Vape? no Pulmonary A/P - Pt denies any active pulmonary complaints/concerns at this time. SUBSTANCE ABUSE Social History Substance and Sexual Activity Alcohol Use Never Social History Substance and Sexual Activity Drug Use Never Substance Abuse A/P - Pt denies any hx of substance abuse. CLOTTING/BLEEDING History of DVT/PE - no Are you a Jehovah Witness? - no In case of surgeons plan or unforseen emergency, are you okay with receiving blood products? - yes Clotting Bleeding A/P - Pt denies any hx of clotting/bleeding disorder. Recommend standard DVT/PE prophylaxis postoperatively. DIABETES Diabetes A/P - Pt has never been diagnosed with DM. No results found for: HGBA1C ADDITIONAL DIAGNOSES OF CONCERN 1. BPH- stable on tamsulosin. MEDICATIONS Current Outpatient Medications Medication Sig Cholecalciferol (D3 5000 PO) Take 5,000 mg by mouth at bedtime. Tamsulosin HCl 0.4 MG capsule Take 1 capsule by mouth at bedtime. Medication A/P - Instructions for preoperative medications given to the patient in AVS. LABS Orders Placed This Encounter CBC, EDIF, PLATELET CHEM 6 (LYTES, BUN CREA) CBC AND ELECTRONIC DIFF Type and Cross -Preadmission PREPARE TO TRANSFUSE OR RED BLOOD CELLS: [address] ECG, CLINIC PERFORMED Pulse Ox Lab A/P - Labs reviewed and CBC & Chem-6 noted in acceptable range for scheduled surgery. Lab Results Component Value Date WBC 5.41 12/26/2022 HGB 13.5 12/26/2022 HCT 40.3 12/26/2022 PLATELET 212 12/26/2022 MCV 93.3 12/26/2022 Lab Results Component Value Date SODIUM 136 12/26/2022 POTASSIUM 4.0 12/26/2022 CHLORIDE 102 12/26/2022 CO2 29 12/26/2022 BUN 13 12/26/2022 CREATSERUM 0.73 12/26/2022 Does pt meet criteria for liberalized NPO? NO If no, why? ASA 3 ore more. Pt is Medically OPTIMIZED to proceed with scheduled surgery. Jr Gamez MD [facility] [facility] [address] [facility] Review of Systems (OSUROS) Review of Systems Constitutional: Negative for appetite change, chills, fatigue and fever. HENT: Negative for congestion, ear pain, hearing loss, nosebleeds, sinus pain, sore throat, tinnitus and trouble swallowing. Eyes: Negative for discharge and itching. Respiratory: Negative for cough, chest tightness and shortness of breath. Cardiovascular: Negative for chest pain, palpitations and leg swelling. Gastrointestinal: Negative for abdominal pain, constipation, diarrhea, nausea and vomiting. Genitourinary: Positive for frequency. Negative for difficulty urinating, dysuria, enuresis, hematuria and urgency. Musculoskeletal: Negative for back pain, myalgias and neck pain. Skin: Negative for color change and rash. Neurological: Negative for dizziness, speech difficulty, numbness and headaches. Psychiatric/Behavioral: Negative for agitation, behavioral problems, decreased concentration and sleep disturbance. The patient is not nervous/anxious. Physical Examination (PHYSEXAM) Blood pressure 142/82, pulse 63, temperature 98.8 F (37.1 C), resp. rate 18, height 1.791 m (5' 10.5 ), weight 76.2 kg (168 lb), SpO2 99 %. Physical Exam Vitals reviewed. Constitutional: General: He is not in acute distress. Appearance: Normal appearance. He is normal weight. He is not ill-appearing. HENT: Head: Normocephalic and atraumatic. Right Ear: Tympanic membrane normal. Left Ear: Tympanic membrane normal. Nose: Nose normal. No congestion or rhinorrhea. Mouth/Throat: Mouth: Mucous membranes are moist. Pharynx: Oropharynx is clear. Eyes: General: Right eye: No discharge. Left eye: No discharge. Extraocular Movements: Extraocular movements intact. Cardiovascular: Rate and Rhythm: Normal rate and regular rhythm. Pulses: Normal pulses. Heart sounds: Normal heart sounds. No murmur heard. No friction rub. Pulmonary: Effort: Pulmonary effort is normal. No respiratory distress. Breath sounds: Normal breath sounds. No stridor. No wheezing or rhonchi. Abdominal: General: Abdomen is flat. Bowel sounds are normal. There is no distension. Palpations: Abdomen is soft. There is no mass. Tenderness: There is no abdominal tenderness. Musculoskeletal: General: No swelling or tenderness. Normal range of motion. Cervical back: Normal range of motion and neck supple. No rigidity. Skin: General: Skin is warm and dry. Coloration: Skin is not jaundiced or pale. Neurological: General: No focal deficit present. Mental Status: He is alert and oriented to person, place, and time. Mental status is at baseline. Cranial Nerves: No cranial nerve deficit. Psychiatric: Mood and Affect: Mood normal. Behavior: Behavior normal. Thought Content: Thought content normal. Past Medical History: Diagnosis Date Arachnoid cyst s/p fenestration Degenerative joint disease cervical spine Hypertension Meniere disease, left Obstructive sleep apnea Osteoarthritis Past Surgical History: Procedure Laterality Date CYSTECTOMY 2017 arachnoid cyst fenestration HERNIA REPAIR 2016 hiatal hernia repair Patient Care Team: Nan Arevalo DO as PCP - General (Family Medicine) No family history on file. Social History Socioeconomic History Marital status: Number of children: 1 Tobacco Use Smoking status: Never Smokeless tobacco: Never Vaping Use Vaping Use: Never used Substance and Sexual Activity Alcohol use: Never Drug use: Never documented in this encounter [facility] 12-26-2022 Instructions Sharita Biggs, SURYA - 12/26/2022 12:45 PM EST Patient Medication Instructions: - Only take medications on the morning of surgery with a sip of water. Do not take any of your other medications on the morning of surgery. Current Outpatient Medications Medication Sig Last Dose Cholecalciferol (D3 5000 PO) 5,000 mg, Oral, DAILY AT BEDTIME Taking Hold evening prior to and morning of the surgery. Tamsulosin HCl 0.4 MG capsule 0.4 mg, Oral, DAILY AT BEDTIME Taking Take night prior to the surgery. If you use an Inhaler/Inhalers on a daily basis, then use your inhaler on the morning of surgery. - Do NOT take Herbal Medication (including multi-vitamin, fish oil (Bethune-3), garlic, Glucosamine - Chondroitin ,gingko, ginseng, Vitamin E, probiotics) vitamins and supplements 2 weeks before surgery. - Do NOT take Excedrin, ibuprofen, Advil, Voltaren (Diclofenac), Motrin, naproxen, or Aleve, Mobic (Meloxicam) for the 7-14 days before surgery. Acetaminophen (Tylenol) is ok to take up until the day of surgery. DO not Vape 24 hrs prior to the surgery. Patient Pre-Operative Instructions: Diet Instructions: Does pt meet criteria for liberalized NPO? no. If no, why? Robotic -NO food or drink after 11 pm the night before surgery except for enough water to take your medications. (No Candy, Mints and/or Gum) - Do NOT wear any hearing aids, jewelry, watches, rings, hairpieces, makeup, glasses or contact lenses with you into your surgery. - Shower the night before and the morning of surgery. - Do NOT shave, or pluck hair from anywhere near the surgical site one week prior to surgery. - Magdalena your teeth and rinse your mouth the morning of surgery. - Do NOT bring your dentures or partials with you into surgery. They may be lost. Give them to someone to bring to you after surgery. If you become ill, develop a fever, cough, or any type of infection within 14 days of your scheduled surgery, please call the surgeon's office. You may need to have your surgery moved, as we would not want to put you at risk for complications due to an illness. If you are placed on Antibiotics within 1 week of surgery, please notify our team immediately. - If you have Sleep apnea and have a CPAP or BIPAP, then bring your CPAP mask and machine with you to the hospital. Patient instructed to bring CPAP machine, with prescribed settings, and mask day of surgery. Patient Education handout VIOLET Care after Sedation or Anesthesia given to patient. To lessen your chance of getting an infection after your surgery, you will need to wash your skin with a special soap called 4% Chlorhexidine Gluconate (CHG) before your surgery. Your nurse has given you CHG soap today and written instructions; Getting Your Skin Ready for Surgery . Please review the instructions carefully prior to your surgery. Please contact Medical Information Management Department for all records requests. [phone] Avs/LLM documented in this encounter [facility] 12-06-2022 Note Received is a reques t for second opinion consultation by Dr. Will Zhang. Prostate cancer Preoperative Diagnosis: Elevated PSA. [facility] Diagnosis Preop exam for internal medicine- Primary Other specified pre-operative examination Prostate cancer Malignant neoplasm of prostate Essential hypertension Unspecified essential hypertension VIOLET (obstructive sleep apnea) Obstructive sleep apnea (adult) (pediatric) Malignant neoplasm of prostate [facility] Diagnosis Malignant neoplasm of prostate- Primary [facility] Diagnosis Erectile dysfunction following radical prostatectomy- Primary Impotence of organic origin Malignant neoplasm of prostate [facility] Name Dates Details Patient Instructions Indication:Nonsmoker Start:24-May-2023 Instruction Type:Provider Instructions for Treatment How to Access Health Informa tion Online using Patient Portal and 3rd [employer] Apps Indication:Nonsmoker Start:24-May-2023 Instruction Type:Patient Education [facility]; [facility] Work Phone: Summary Purpose Family History Unknown Family Member Name Dates Details Father Comments:Ruptured brain aneu rysm Status:Active Maternal Aunt Comments:Renal cell cancer Status:Active Mother Comments:Renal cell Status:Active Advance Directives Documents on File Type Date Recorded 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 [place] [address] Referral ID Status Reason Start Date Expiration Date V isits Requested Visits Authorized [id number] New Request 12/01/2022 12/26/2023 1 1 Specialty Diagnoses / Procedures Referred By Zach mason Referred To Contact Diagnoses Preop exam for internal medicine Prostate cancer Essential hypertension VIOLET (obstructive sleep apnea) Procedures PREPARE TO TRANSFUSE OR RED BLOOD CELLS Jr Gamez MD [address] [facility] [address] [place] [address] Referral ID Status Reason Start Date Expiration Date V isits Requested Visits Authorized [id number] New Request 12/26/2022 01/20/2024 1 1 Additional Source Comments (unrecognized sect ion and content) No Status Records FoundNo Status Records FoundNo Status Records FoundNo Status Records FoundNo Status Records FoundNo Status Records Found INFORMATION SOURCE (unrecogn ized section and content) DATE CREATED AUTHOR AUTHOR'S ORGANIZ ATION 10/14/2018 [facility] DATE CREATED AUTHOR AUTHOR'S ORGANIZ ATION 10/15/2018 [facility] DATE CREATED AUTHOR AUTHOR'S ORGANIZ ATION 03/03/2020 [facility] DATE CREATED AUTHOR AUTHOR'S ORGANIZ ATION 12/02/2021 [facility] DATE CREATED AUTHOR AUTHOR'S ORGANIZ ATION 05/06/2023 [facility] Reason for Visit (unrecogniz ed section and content) Specialty Diagnoses / Procedures Referred By Contac t Referred To Contact Urology Diagnoses New pt/dx prostate ca/recs with [facility]/referred by Procedures NEW SURG George Padilla MD [address] [facility] [address] [place] [address] Will Zhang MD, PhD [address] [place] [id number] Referral ID Status Reason Start Date Expiration Date V isits Requested Visits Authorized [id number] Pending Review 12/01/2022 12/26/2023 1 1 Reason Comments Preoperative Assessment Specialty Diagnoses / Procedures Referred By Contac t Referred To Contact PreOp Diagnoses Malignant neoplasm of prostate Will Zhang MD, PhD [address] [place] [id number] Referral ID Status Reason Start Date Expiration Date V isits Requested Visits Authorized [id number] Pending Review 12/01/2022 12/26/2023 1 1 Reason Comments Post Op Visit Void trial Reason Comments Prostate Cancer Erectile Dysfunction Care Teams (unrecognized sec tion and content) Instructor Technical Training Relationship Specialty Start Date End Date Nan Arevalo, DO [address] [place] [address] [place] [address] PCP - General Family Medicine 12/01/22 Instructor Technical Training Relationship Specialty Start Date End Date Nan Arevalo DO [address] [place] [address] [place] [address] PCP - General Family Medicine 12/01/22 Instructor Technical Training Relationship Specialty Start Date End Date Nan Arevalo DO [address] [place] [place] [address] [place] [address] PCP - General Family Medicine 12/01/22 FOR RECORDS PERTAINING TO PATIENTS WHO ARE OR HAVE BEEN ENROLLED IN A CHEMICAL DEPENDENCY/SUBSTANCEABUSE PROGRAM, SOME INFORMATION MAY BE OMITTED. This clinical summary was aggregated from multiple sources. Caution should be exercised in using it in the provision of clinical care. This summary normalizes information from multiple sources, and as a consequence, information in this document may materially change the coding, format and clinical context of patient data. In addition, data may be omitted in some cases. CLINICAL DECISIONS SHOULD BE BASED ON THE PRIMARY CLINICAL RECORDS. [employer] [facility]. provides no warranty or guarantee of the accuracy or completeness of information in this document.
[2023-11-02 07:18] LABS: EGFR FINGERSTICK > 60.0000 mL/min (>60)
== END | disposition home or self-care (01) ==
LOC: CT 06:48
PROVIDERS: PCP Family Medicine
DX: C61 Malignant neoplasm of prostate (principal); R19.03 Right lower quadrant abdominal swelling, mass and lump
CPT/HCPCS: 74177; Q9967

== ENCOUNTER → 2025-06-16 | Outpatient (CLI) | payer OTHER, SELFPAY | END | disposition home or self-care (01) | LOC: MTRAD 13:26 | PROVIDERS: PCP Family Medicine; Referring Provider Chiropractor; Visit Provider Chiropractor | DX: M99.03 Segmental and somatic dysfunction of lumbar region (principal) | CPT/HCPCS: 72110 ==